=== PATIENT | female | born 1950 | race Caucasian/White ===

== ENCOUNTER 2023-05-05 14:40 | Emergency (ER) | payer OTHER ==
[~2023-05-05] VITALS: Ht 152.4 cm; Wt 61.7 kg
[2023-05-05] MEDS ORDERED: KLOR-CON M2020 MEQ PO (15:18)
[2023-05-05] MEDS ORDERED: AMLODIPINE (15:18)
[2023-05-05] MEDS ORDERED: HYDROCHLOROTHIAZIDE (15:19)
[2023-05-05] MEDS ORDERED: OMEPRAZOLE20 MG PO (15:19)
[2023-05-05] MEDS ORDERED: ATORVASTATIN CA20 MG PO (15:19)
[2023-05-05] MEDS ORDERED: ZYLOPRIM100 M1 PO (15:20)
== END 2023-05-05 17:38 | disposition home or self-care (01) ==
LOC: ER 14:40
DX: H92.02 Otalgia, left ear (principal)